=== PATIENT | female | born 1935 | race Two or more races ===

== ENCOUNTER 2017-04-23 13:12 | Outpatient (CLI) | payer OTHER ==
[~2017-04-23 13:12] MED LIST: AUGMENTIN1 TAB.SR2 PO; AVAPRO150 MG PO; LIPITOR20 MG PO
== END 2017-04-23 13:18 | disposition home or self-care (01) ==
LOC: RAD 13:12
DX: M77.31 Calcaneal spur, right foot (principal)

== ENCOUNTER 2017-10-22 13:38 | Outpatient (CLI) | payer OTHER | END 2017-10-22 17:00 | disposition home or self-care (01) | LOC: MRI 13:38 | DX: M54.11 Radiculopathy, occipito-atlanto-axial region (principal); M54.12 Radiculopathy, cervical region; M54.13 Radiculopathy, cervicothoracic region; M75.101 Unspecified rotator cuff tear or rupture of right shoulder, not specified as traumatic; M75.102 Unspecified rotator cuff tear or rupture of left shoulder, not specified as traumatic | CPT/HCPCS: 72141 ==

== ENCOUNTER 2017-10-25 15:47 | Emergency (ER) | payer OTHER ==
[~2017-10-25] VITALS: Ht 144.8 cm; Wt 53.5 kg
[~2017-10-25 15:47] MED LIST changes: -AVALIDE 300-121 EACH
[2017-10-25] MEDS ORDERED: AVALIDE 300-121 EACH (16:24)
== END 2017-10-25 20:57 | disposition home or self-care (01) ==
LOC: ER 15:47
DX: J40 Bronchitis, not specified as acute or chronic (principal); J06.9 Acute upper respiratory infection, unspecified

== ENCOUNTER → 2017-10-25 | Outpatient (CLI) | payer OTHER ==
[~2017-10-25] MED LIST changes: +AVALIDE 300-121 EACH
== END | disposition home or self-care (01) ==
LOC: NUCLEAR 14:00
DX: M81.0 Age-related osteoporosis without current pathological fracture (principal)

== ENCOUNTER → 2018-01-21 | Outpatient (CLI) | payer OTHER ==
[~2018-01-21] MED LIST changes: +AVALIDE 300-121 EACH
== END | disposition home or self-care (01) ==
LOC: RAD 16:02
DX: M15.0 Primary generalized (osteo)arthritis (principal)

== ENCOUNTER 2018-01-28 17:27 | Emergency (ER) | payer OTHER ==
[~2018-01-28] VITALS: Ht 149.9 cm; Wt 59.0 kg
[2018-01-28] MEDS ORDERED: AVALIDE 300-121 EACH (17:48)
== END 2018-01-28 21:01 | disposition home or self-care (01) ==
LOC: ER 17:27
DX: J09.X2 Influenza due to identified novel influenza A virus with other respiratory manifestations (principal); J06.9 Acute upper respiratory infection, unspecified

== ENCOUNTER 2018-02-03 14:50 | Outpatient (CLI) | payer OTHER | END 2018-02-03 14:56 | disposition home or self-care (01) | LOC: RAD 14:50 | DX: S69.81XA Other specified injuries of right wrist, hand and finger(s), initial encounter (principal) ==

== ENCOUNTER 2018-03-06 08:36 | Outpatient (CLI) | payer OTHER | END 2018-03-06 08:44 | disposition home or self-care (01) | LOC: MRI 08:36 | DX: S56.119A Strain of flexor muscle, fascia and tendon of finger of unspecified finger at forearm level, initial encounter (principal) | CPT/HCPCS: 73218 ==

== ENCOUNTER 2019-01-16 09:26 | Outpatient (CLI) | payer OTHER | END 2019-01-16 10:00 | disposition home or self-care (01) | LOC: NUCLEAR 09:26 | DX: I11.9 Hypertensive heart disease without heart failure (principal); I35.0 Nonrheumatic aortic (valve) stenosis; I34.0 Nonrheumatic mitral (valve) insufficiency ==

== ENCOUNTER 2019-03-16 14:33 | Emergency (ER) | payer OTHER ==
[~2019-03-16] VITALS: Ht 149.9 cm; Wt 54.4 kg
== END 2019-03-16 18:06 | disposition home or self-care (01) ==
LOC: ER 14:33
DX: M25.562 Pain in left knee (principal)

== ENCOUNTER 2019-10-30 13:21 | Outpatient (CLI) | payer OTHER | END 2019-10-30 14:50 | disposition home or self-care (01) | LOC: NUCLEAR 13:21 | PROVIDERS: ATTEND Internal Medicine Rheumatology | DX: M81.0 Age-related osteoporosis without current pathological fracture (principal) ==

== ENCOUNTER 2019-12-22 14:42 | Outpatient (CLI) | payer OTHER | END 2019-12-22 15:35 | disposition home or self-care (01) | LOC: SONOGRAMA 14:42 → MAMO-SONO 14:45 → SONOGRAMA 15:35 | PROVIDERS: ATTEND Internal Medicine Rheumatology | DX: E04.2 Nontoxic multinodular goiter (principal); E03.8 Other specified hypothyroidism ==

== ENCOUNTER → 2021-02-14 12:04 | Outpatient (CLI) | payer OTHER | END | disposition home or self-care (01) | LOC: NUCLEAR 11:00 | PROVIDERS: ATTEND Internal Medicine Cardiovascular Disease | DX: I35.0 Nonrheumatic aortic (valve) stenosis (principal) ==

== ENCOUNTER 2021-06-27 08:00 | Outpatient (CLI) | payer OTHER | END 2021-06-27 08:30 | disposition home or self-care (01) | LOC: PPH VACUNA 08:00 | PROVIDERS: ATTEND Emergency Medicine Pediatric Emergency Medicine | DX: Z23 Encounter for immunization (principal) ==

== ENCOUNTER 2021-12-07 08:48 | Outpatient (CLI) | payer OTHER | END 2021-12-07 08:53 | disposition home or self-care (01) | LOC: PPH VACUNA 08:48 | PROVIDERS: ATTEND Emergency Medicine Pediatric Emergency Medicine | DX: Z23 Encounter for immunization (principal) ==

== ENCOUNTER 2022-08-14 17:31 | Emergency (ER) | payer OTHER ==
[~2022-08-14] VITALS: Ht 142.2 cm; Wt 50.8 kg
== END 2022-08-14 22:07 | disposition home or self-care (01) ==
LOC: ER 17:31
DX: S29.8XXA Other specified injuries of thorax, initial encounter (principal); W18.39XA Other fall on same level, initial encounter; Y93.89 Activity, other specified; Y92.018 Other place in single-family (private) house as the place of occurrence of the external cause; I10 Essential (primary) hypertension; E78.00 Pure hypercholesterolemia, unspecified

== ENCOUNTER 2022-09-04 10:51 | Outpatient (CLI) | payer OTHER | END 2022-09-04 10:55 | disposition home or self-care (01) | LOC: NUCLEAR 10:51 | PROVIDERS: ATTEND Internal Medicine Cardiovascular Disease | DX: I35.0 Nonrheumatic aortic (valve) stenosis (principal); I11.9 Hypertensive heart disease without heart failure; I34.0 Nonrheumatic mitral (valve) insufficiency ==

== ENCOUNTER 2022-12-25 15:57 | Outpatient (CLI) | payer OTHER | END 2022-12-25 16:01 | disposition home or self-care (01) | LOC: RAD 15:57 | PROVIDERS: ATTEND Internal Medicine Rheumatology | DX: M15.0 Primary generalized (osteo)arthritis (principal) ==

== ENCOUNTER 2023-01-03 17:34 | Emergency (ER) | payer OTHER ==
[~2023-01-03] VITALS: Ht 152.4 cm; Wt 51.7 kg
[2023-01-03] MEDS ORDERED: AVALIDE 300-121 EACH PO (18:28)
[2023-01-03 20:26] LABS: ERYTHROCYTE SEDIMENTATION RATE 16 mm/hr; HEMATOCRIT 34.6 % (36.0-45.00); HEMOGLOBIN 11.6 g/dL (12.0-15.00); MEAN CORPUSCULAR HEMOGLOBIN 31.5 pg (27.00-32.0); MEAN CORPUSCULAR HGB CONC 33.5 g/dl (32.0-36.0); PLATELET COUNT 231 K/uL (150-450); RED BLOOD COUNT 3.69 M/uL (4.00-6.00); RED CELL DISTRIBUTION WIDTH 13.9 % (11.5-14.5)
[2023-01-03] MEDS ORDERED: TYLENOL ARTHRI650 MG PO (22:02)
== END 2023-01-03 22:05 | disposition home or self-care (01) ==
LOC: ER 17:34
PROVIDERS: Nurse Practitioner Family
DX: M17.11 Unilateral primary osteoarthritis, right knee (principal); I10 Essential (primary) hypertension; Z86.79 Personal history of other diseases of the circulatory system
CPT/HCPCS: 36415; 73560; 96365; 99284; J1885

== ENCOUNTER 2023-01-15 13:20 | Outpatient (CLI) | payer OTHER ==
[~2023-01-15 13:20] MED LIST changes: +AVALIDE 300-121 EACH PO; +TYLENOL ARTHRI650 MG PO
== END 2023-01-15 13:28 | disposition home or self-care (01) ==
LOC: RAD 13:20
PROVIDERS: ATTEND Internal Medicine Rheumatology
DX: M17.11 Unilateral primary osteoarthritis, right knee (principal)